=== PATIENT | female | born 1970 | race Caucasian/White ===

== ENCOUNTER 2017-05-01 19:30 | Inpatient (IN) ==
[2017-05-01] MEDS ORDERED: MetroNIDAZOLE 500 MG/100 ML 500 MG/100 ML BAG IVPB ONE (19:40)
[2017-05-01] MEDS ORDERED: Piperacillin/Tazobactam 3.375 GM in 0.9 % Sodium Chloride Mini Bag 100 ML IVPB ONE (19:40)
--- NOTE | 2017-05-01 19:41 | Emergency Department Note ---
Disposition Clinical Impression: Diverticulitis of intestine with abscess Disposition: Admitted As Inpatient Condition: Good General Adult HPI - General Chief complaint: ED Skin/Abscess/Foreign Body Stated complaint: ABSCESS Time Seen by Provider: 05/01/17 19:36 Source: patient, family Limitations: no limitations - History of Present Illness Pain Scale: 4 - Related Data Home Medications Medication Instructions Recorded Confirmed Ciprofloxacin HCl [Cipro] 500 mg PO BID 05/01/17 05/01/17 Sertraline [Zoloft] 50 mg PO DAILY 05/01/17 05/01/17 metroNIDAZOLE [Flagyl] 500 mg PO QID 05/01/17 05/01/17 Allergies Allergy/AdvReac Type Severity Reaction Status Date / Time No Known Allergies Allergy Verified 05/01/17 19:31 Past Medical History - Past Medical History Medical history: Reports: hyperlipidemia Psychiatric history: Reports: anxiety, depression [employer] history: Reports: bilateral tubal ligation - Social History Smoking Status: Current every day smoker Smokeless Tobacco Status: No Alcohol use: Reports: rarely Drug use: Reports: none Physical Exam - General Limitations: no limitations General appearance: alert, in no apparent distress Course Vital Signs Temperature 97.8 F 05/01/17 19:31 Pulse Rate 92 05/01/17 19:31 Respiratory Rate 16 05/01/17 19:31 Blood Pressure 139/84 05/01/17 19:31 O2 Sat by Pulse Oximetry 99 05/01/17 19:31 Temperature 98.1 F 05/02/17 00:15 Pulse Rate 83 05/02/17 00:15 Respiratory Rate 16 05/02/17 00:15 Blood Pressure 112/69 05/02/17 00:15 O2 Sat by Pulse Oximetry 95 05/02/17 00:15 Oxygen Delivery Oxygen Delivery Room Air Medical Decision Making - Lab Data Result diagrams: 05/01/17 19:46 05/01/17 19:46 Lab Results 05/01/17 05/01/17 05/01/17 Range/Units 19:46 19:46 19:46 WBC 11.1 (4.3-11.1) K/mcL RBC 4.56 (3.82-4.97) M/mcL Hgb 14.0 (11.5-15.4) g/dL Hct 41.9 (35.3-44.9) % MCV 91.9 (83.0-100.0) fL MCH 30.7 (28.0-33.3) pg MCHC 33.4 (31.6-35.5) g/dL RDW 11.9 (11.5-14.5) % Plt Count 369 (140-400) K/mcL MPV 10.1 (9.4-12.4) fL Immature Gran % 0.3 (0-4) % Seg Neutrophils % 53.1 % Lymphocytes % 38.5 % Monocytes % 6.2 % Eosinophils % 1.4 % Basophils % 0.5 % Neutrophils # 5.9 (1.6-8.9) K/mcL Lymphocytes # 4.3 (0.6-4.6) K/mcL Monocytes # 0.7 (0.0-1.3) K/mcL Eosinophils # 0.2 (0.0-0.6) K/mcL Basophils # 0.1 (0.0-0.2) K/mcL PT 12.6 H (9.4-12.1) Seconds INR 1.2 Sodium 134 L (136-145) mEq/L Potassium 4.0 (3.5-5.1) mEq/L Chloride 102 (98-107) mEq/L Carbon Dioxide 24 (23-29) mEq/L BUN 12 (6-20) mg/dL Creatinine 0.71 (0.60-1.20) mg/dL Est GFR ( Amer) > 60 (> 60) Est GFR (Non-Af Amer) > 60 (> 60) BUN/Creatinine Ratio 17 (6-26) Glucose 99 (70-105) mg/dL Calculated Osmolality 278 L (280-300) Calcium 9.8 (8.6-10.3) mg/dL Total Bilirubin 0.4 (0.3-1.0) mg/dL AST 13 (13-39) Units/L ALT 16 (7-52) Units/L Alkaline Phosphatase 78 (34-104) Units/L Serum Total Protein 7.5 (6.4-8.9) g/dL Albumin 4.2 (3.5-5.7) g/dL Globulin 3.3 (2.4-3.5) g/dL Albumin/Globulin Ratio 1.3 (1.1-2.2) Attestation Statement - Attestation Attestation: I examined this patient and my medical decision-making was reviewed with the Resident Physician. I agree with the documented findings, disposition and treatment plan as described except to the extent set forth below. [id number] time provided Patient had an outpatient CT showing a colonic wall abscess secondary to diverticulitis. I have reviewed the transcribed report dictated earlier today. She appears in no acute distress on exam. Patient seen in conjunction with the resident physician
[2017-05-01 20:19] LABS: Basophils # 0.1 K/mcL (0.0-0.2); Basophils % 0.5 %; Eosinophils # 0.2 K/mcL (0.0-0.6); Eosinophils % 1.4 %; Hematocrit 41.9 % (35.3-44.9); Immature Granulocytes % 0.3 % (0-4); Lymphocytes # 4.3 K/mcL (0.6-4.6); Lymphocytes % 38.5 %; Mean Corpuscular HGB Conc 33.4 g/dL (31.6-35.5); Mean Corpuscular Hemoglobin 30.7 pg (28.0-33.3); Mean Corpuscular Volume 91.9 fL (83.0-100.0); Mean Platelet Volume 10.1 fL (9.4-12.4); Monocytes # 0.7 K/mcL (0.0-1.3); Monocytes % 6.2 %; Neutrophils # 5.9 K/mcL (1.6-8.9); Platelet Count 369 K/mcL (140-400); Red Blood Count 4.56 M/mcL (3.82-4.97); Red Cell Distribution Width 11.9 % (11.5-14.5); Segmented Neutrophils % 53.1 %
[2017-05-01 20:21] LABS: INR 1.2; Prothrombin Time 12.6 Seconds (9.4-12.1)
[2017-05-01 20:25] LABS: Alanine Aminotransferase 16 Units/L (7-52); Albumin 4.2 g/dL (3.5-5.7); Albumin/Globulin Ratio 1.3 (1.1-2.2); Alkaline Phosphatase 78 Units/L (34-104); Aspartate Amino Transferase 13 Units/L (13-39); BUN/Creatinine Ratio 17 (6-26); Bilirubin,Total 0.4 mg/dL (0.3-1.0); Blood Urea Nitrogen 12 mg/dL (6-20); Calcium 9.8 mg/dL (8.6-10.3); Carbon Dioxide 24 mEq/L (23-29); Chloride 102 mEq/L (98-107); Globulin 3.3 g/dL (2.4-3.5); Glucose 99 mg/dL (70-105); Osmolality,Calculated 278 (280-300); Sodium 134 mEq/L (136-145); Total Protein 7.5 g/dL (6.4-8.9); eGFR For African Americans > 60 (> 60); eGFR For Non-African Americans > 60 (> 60)
--- NOTE | 2017-05-01 20:37 | Emergency Department Note ---
Disposition Clinical Impression: Diverticulitis of intestine with abscess Qualifiers: Diverticulitis site: large intestine Diverticulitis bleeding: without bleeding Qualified Code(s): K57.20 - Diverticulitis of large intestine with perforation and abscess without bleeding Disposition: Admitted As Inpatient Condition: Good Forms: ED Satisfaction Letter Time of Disposition: 20:39 General Adult HPI - General Chief complaint: ED Skin/Abscess/Foreign Body Stated complaint: ABSCESS Time Seen by Provider: 05/01/17 19:36 Source: patient, family Mode of arrival: ambulatory Limitations: no limitations Nursing Notes Reviewed: Yes Vital Signs Reviewed: Yes - History of Present Illness HPI Narrative: 47-year-old female with no significant past medical history presenting to the emergency department with chief complaint of abdominal pain. Patient states since Friday she has had some left lower and suprapubic abdominal pain. She denies any fevers, nausea or vomiting. Denies diarrhea. Patient states she had a hysterectomy but no other abdominal surgeries. Patient followed up with her primary care physician today who completed a CT of the abdomen and pelvis which showed diverticulitis and a 8 mm abscess in the sigmoid colon. Patient was sent to the emergency department for further evaluation and workup. Pain Scale: 4 - Related Data Allergies Allergy/AdvReac Type Severity Reaction Status Date / Time No Known Allergies Allergy Verified 05/01/17 19:31 All systems ED: reviewed and negative except as stated. Gastrointestinal: Reports: abdominal pain Past Medical History - Past Medical History Attestation: Yes The following information was validated with the patient. Medical history: Reports: hyperlipidemia Psychiatric history: Reports: anxiety, depression [employer] history: Reports: bilateral tubal ligation - Social History Smoking Status: Current every day smoker Smokeless Tobacco Status: No Alcohol use: Reports: rarely Drug use: Reports: none Physical Exam - General Limitations: no limitations General appearance: alert, in no apparent distress - Head Head exam: atraumatic, normocephalic, normal inspection - Eye Eye exam: Present: normal appearance. Absent: scleral icterus, conjunctival injection - ENT ENT exam: normal exam, mucous membranes moist - Neck Neck exam: Present: normal inspection, full ROM. Absent: tenderness, meningismus - Chest Chest inspection: Present: normal inspection, symmetric chest wall rise. Absent : tenderness, rash - Respiratory Respiratory exam: Present: normal lung sounds bilaterally. Absent: respiratory distress, wheezes - Cardiovascular Cardiovascular exam: Present: regular rate, normal rhythm, normal heart sounds - Abdominal Exam Abdominal exam: Present: soft, tenderness. Absent: distention, guarding, rebound, rigidity Abdominal tenderness: Present: LLQ, suprapubic, mild - Extremities Exam Extremities exam: Present: normal inspection, full ROM - Neurological Exam Neurological exam: Present: alert, oriented X3 - Psychiatric Psychiatric exam: Present: normal affect, normal mood - Skin Skin exam: Present: warm, intact Course Course Narrative: 47-year-old female presenting to the emergency department complaining of abdominal pain. CT completed today showed diverticulitis with abscess formation in the sigmoid colon. We will obtain basic lab work including CBC, CMP and provide the patient with Flagyl and Zosyn. Patient is alert and oriented 3 in the room and stable vital signs at this time. Disposition is likely admission pending results. Patient agrees with this plan. - Reevaluation(s) Reevaluation #1: All patient's lab work within normal limits. We will plan to admit the patient to surgical team. Dr. Cantrell accepts the patient at this time. Patient is alert and oriented 3. Vital signs at this time. She agrees with this plan. Vital Signs Temperature 97.8 F 05/01/17 19:31 Pulse Rate 92 05/01/17 19:31 Respiratory Rate 16 05/01/17 19:31 Blood Pressure 139/84 05/01/17 19:31 O2 Sat by Pulse Oximetry 99 05/01/17 19:31 Temperature 97.8 F 05/01/17 19:31 Pulse Rate 92 05/01/17 19:31 Respiratory Rate 16 05/01/17 19:31 Blood Pressure 139/84 05/01/17 19:31 O2 Sat by Pulse Oximetry 99 05/01/17 19:31 Oxygen Delivery Oxygen Delivery Room Air Medical Decision Making - Lab Data Result diagrams: 05/01/17 19:46 05/01/17 19:46 Lab Results 05/01/17 05/01/17 05/01/17 Range/Units 19:46 19:46 19:46 WBC 11.1 (4.3-11.1) K/mcL RBC 4.56 (3.82-4.97) M/mcL Hgb 14.0 (11.5-15.4) g/dL Hct 41.9 (35.3-44.9) % MCV 91.9 (83.0-100.0) fL MCH 30.7 (28.0-33.3) pg MCHC 33.4 (31.6-35.5) g/dL RDW 11.9 (11.5-14.5) % Plt Count 369 (140-400) K/mcL MPV 10.1 (9.4-12.4) fL Immature Gran % 0.3 (0-4) % Seg Neutrophils % 53.1 % Lymphocytes % 38.5 % Monocytes % 6.2 % Eosinophils % 1.4 % Basophils % 0.5 % Neutrophils # 5.9 (1.6-8.9) K/mcL Lymphocytes # 4.3 (0.6-4.6) K/mcL Monocytes # 0.7 (0.0-1.3) K/mcL Eosinophils # 0.2 (0.0-0.6) K/mcL Basophils # 0.1 (0.0-0.2) K/mcL PT 12.6 H (9.4-12.1) Seconds INR 1.2 Sodium 134 L (136-145) mEq/L Potassium 4.0 (3.5-5.1) mEq/L Chloride 102 (98-107) mEq/L Carbon Dioxide 24 (23-29) mEq/L BUN 12 (6-20) mg/dL Creatinine 0.71 (0.60-1.20) mg/dL Est GFR ( Amer) > 60 (> 60) Est GFR (Non-Af Amer) > 60 (> 60) BUN/Creatinine Ratio 17 (6-26) Glucose 99 (70-105) mg/dL Calculated Osmolality 278 L (280-300) Calcium 9.8 (8.6-10.3) mg/dL Total Bilirubin 0.4 (0.3-1.0) mg/dL AST 13 (13-39) Units/L ALT 16 (7-52) Units/L Alkaline Phosphatase 78 (34-104) Units/L Serum Total Protein 7.5 (6.4-8.9) g/dL Albumin 4.2 (3.5-5.7) g/dL Globulin 3.3 (2.4-3.5) g/dL Albumin/Globulin Ratio 1.3 (1.1-2.2)
--- NOTE | 2017-05-01 21:33 | General Surg History&Physical ---
Date of Encounter: 05/01/17 Time of Encounter: 21:31 Assessment and Plan (1) Diverticulitis of intestine with abscess Current Visit: Yes Status: Acute 47F with recurrent diverticulitis now with associated abscess; non septic; all imaging was reviewed and interpreted by me in combination with radiology; NPO IVF abx: zosyn activity as tolerated no acute surgery; The assessment and plan as outlined above was discussed with the patient and/or family members who expressed understanding and agreement. All questions were answered. Qualifiers: Diverticulitis site: large intestine Diverticulitis bleeding: without bleeding Qualified Code(s): K57.20 - Diverticulitis of large intestine with perforation and abscess without bleeding History of Present Illness Chief complaint: abdominal pain HPI: Ms. Stanford is a 47 year old female who is otherwise healthy who presents with 5 day history of worsening LLQ abdominal pain. No associated fevers, chills; she does report PO intolerance. She comes to the ED for further evaluation. Of note, about 4 years ago she had a similar episode requiring hospitalization. She was diagnosed with diverticulitis, but treated non operatively. She also reports similar, smaller episodes between now and 4 years ago that resolved within 24-48hours. Past Med Surg Social Fam HX - Past Medical History Medical history: hyperlipidemia Psychiatric history: anxiety, depression - Past Surgical History Surgical History: no surgical history, other - Social History Smoking Status: Current every day smoker Smokeless Tobacco Status: No Alcohol use: rarely Drug use: none - Family History Father Hx Family Cardiac Disorders: Yes (HTN) Mother Hx Family Cardiac Disorders: Yes (HTN) Medications and Allergies Ciprofloxacin HCl [Cipro] 500 mg PO BID 05/01/17 [History] Sertraline [Zoloft] 50 mg PO DAILY 05/01/17 [History] metroNIDAZOLE [Flagyl] 500 mg PO QID 05/01/17 [History] 3 Allergy/AdvReac Type Severity Reaction Status Date / Time No Known Allergies Allergy Verified 05/01/17 19:31 Review of Systems All systems PM: The remainder of the systems were reviewed and are negative General Surgery Exam Initial Vital Signs Temp Pulse Resp BP Pulse Ox 97.8 F 92 16 139/84 99 05/01/17 19:31 05/01/17 19:31 05/01/17 19:31 05/01/17 19:31 05/01/17 19:31 - General physical appearance well developed, well nourished, no distress - Eyes normal ocular movement - ENT normocephalic - Neck no lymphadectomy - Respiratory normal expansion, normal respiratory effort - Cardiovascular Cardiovascular exam: Present: RRR - Abdomen Abdomen general surgery: Present: soft, tender Abdominal Tenderness: Present: LLQ, suprapubic - Integumentary Integumentary general surgery: Present: warm and dry - Neurologic Present: CN 2-12 grossly intact - Musculoskeletal Present: normal posture - Psychiatric Psychiatric general surgery: Present: A&Ox3 Results - Labs 05/01/17 19:46 05/01/17 19:46 Abnormal lab results PT 12.6 Seconds (9.4-12.1) H 05/01/17 19:46 Sodium 134 mEq/L (136-145) L 05/01/17 19:46 Calculated Osmolality 278 (280-300) L 05/01/17 19:46 All other labs normal. - Imaging CT scan - abdomen: report reviewed, image reviewed CT scan - pelvis: report reviewed, image reviewed
[2017-05-01] MEDS ORDERED: *HR* Promethazine 25 MG/ML VIAL IVP PRN (21:36)
[2017-05-01] MEDS ORDERED: *HR* FentaNYL (PF) 100 MCG/2 ML VIAL IVP PRN (21:40)
[2017-05-01] MEDS: D5% in 0.45% NACL w KCl 20 MEQ/1,000 ML MLS IVC SCH (22:34)
[2017-05-02] MEDS: Piperacillin/Tazobactam 3.375 GM in 0.9 % Sodium Chloride Mini Bag 100 ML IVPB SCH ×3 (04:38→20:42)
[2017-05-02 05:54] LABS: Basophils # 0.1 K/mcL (0.0-0.2); Basophils % 0.6 %; Eosinophils # 0.2 K/mcL (0.0-0.6); Eosinophils % 2.5 %; Hematocrit 38.2 % (35.3-44.9); Hemoglobin 12.6 g/dL (11.5-15.4); Immature Granulocytes % 0.4 % (0-4); Lymphocytes # 3.2 K/mcL (0.6-4.6); Lymphocytes % 39.5 %; Mean Corpuscular Hemoglobin 30.7 pg (28.0-33.3); Mean Corpuscular Volume 92.9 fL (83.0-100.0); Mean Platelet Volume 10.1 fL (9.4-12.4); Monocytes # 0.6 K/mcL (0.0-1.3); Monocytes % 7.8 %; Neutrophils # 3.9 K/mcL (1.6-8.9); Platelet Count 337 K/mcL (140-400); Red Blood Count 4.11 M/mcL (3.82-4.97); Red Cell Distribution Width 11.9 % (11.5-14.5); Segmented Neutrophils % 49.2 %
[2017-05-02] MEDS: *HR* Enoxaparin 40 MG/0.4 ML SYRINGE SQ SCH (05:54)
[2017-05-02] MEDS: D5% in 0.45% NACL w KCl 20 MEQ/1,000 ML MLS IVC SCH (08:47)
--- NOTE | 2017-05-02 10:38 | General Surgery Progress Note ---
<Chris Solanoison H - Last Filed: 05/02/17 10:42> Date of Encounter: 05/02/17 Time of Encounter: 10:36 - Assessment and Plan (1) Diverticulitis of intestine with abscess Current Visit: Yes Status: Acute 47-year-old female with recurrent diverticulitis now with associated abscess. Patient's nonseptic and resting comfortably. -We will advance her to clear liquid diet. -IVF -Zosyn -Increase activity as tolerated. -No acute surgery. -If advancement of diet tomorrow is tolerated, okay for discharge. Qualifiers: Diverticulitis site: unspecified part of intestinal tract Diverticulitis bleeding: without bleeding Qualified Code(s): K57.80 - Diverticulitis of intestine, part unspecified, with perforation and abscess without bleeding Subjective Patient reports: no new complaints, feels better, pain is less, voiding w/o difficulty, flatus, afebrile (No nausea or vomitting. No hematochezia or melena. ) Objective Vital Signs - Last 8 Hours Temp Pulse Resp BP Pulse Ox 05/02/17 06:32 98.2 F 78 16 97/55 96 05/02/17 04:08 98.1 F 85 14 105/61 97 Intake and Output 05/01/17 05/02/17 05/02/17 23:59 07:59 15:59 Intake Total 1094 / 1094 Output Total 0 / 0 400 / 400 Balance 0 / 0 694 / 694 Intake: IV Fluids 1094 / 1094 KCl 20mEq IN D5%-0.45 NACL 20 994 / 994 meq In 1,000 ml @ 100 mls/hr IVC .Q10H DEVON Rx#:[id number] Zosyn 3.375 GM In 0.9 % Sodium 100 / 100 Chloride (Mini-Bag +) 100 ML @ 25 mls/hr IVPB Q8H DEVON Rx#: [id number] Output: Urine 0 / 0 400 / 400 Other: Meal NPO BREAKFAST # Voids 3 # Bowel Movements 1 Weight 61.416 kg Blood Glucose* 105 Patient Weight 05/02/17 23:59 Weight 61.416 kg - General physical appearance well developed, well nourished, no distress - Eyes normal ocular movement - ENT normal mucosa - Neck Neck exam: trachea midline - Respiratory normal expansion, normal respiratory effort, clear to auscultation - Cardiovascular Cardiovascular exam: Present: RRR, no murmurs/rubs/gallops - Abdomen Abdomen: Present: bowel sounds present, soft, non tender Hernia: none - Integumentary no rash - Neurologic CN 2-12 grossly intact, normal coordination - Musculoskeletal normal posture - Psychiatric oriented to time, oriented to person, oriented to place, speech is normal, memory intact - Labs 05/02/17 05:11 05/01/17 19:46 - VTE Documentation of Mechanical Device: Graduated compression elastic hosiery Consult Discharge Plan - Plan Referrals: Kody Cantrell MD [Non-Partnered Physician] - 05/07/17 2:35 pm Shabnam Mccormack MD [Primary Care Provider] - 06/12/17 9:00 am <Kody Cantrell - Last Filed: 05/03/17 11:04> Date of Encounter: 05/03/17 - Assessment and Plan (1) Diverticulitis of intestine with abscess Current Visit: Yes Status: Acute Qualifiers: Diverticulitis site: unspecified part of intestinal tract Diverticulitis bleeding: without bleeding Qualified Code(s): K57.80 - Diverticulitis of intestine, part unspecified, with perforation and abscess without bleeding Objective Vital Signs - Last 8 Hours Temp Pulse Resp BP Pulse Ox 05/03/17 10:57 97.8 F 63 14 114/59 99 05/03/17 06:52 97.9 F 67 16 104/69 97 05/03/17 04:13 98.0 F 73 14 102/53 97 Intake and Output 05/02/17 05/03/17 05/03/17 23:59 07:59 15:59 Intake Total 1540 / 1540 580 / 580 360 / 360 Output Total 850 / 850 850 / 850 Balance 690 / 690 -270 / -270 360 / 360 Intake: IV Fluids 1300 / 1300 100 / 100 KCl 20mEq IN D5%-0.45 NACL 20 1000 / 1000 meq In 1,000 ml @ 100 mls/hr IVC .Q10H DEVON Rx#:[id number] Zosyn 3.375 GM In 0.9 % Sodium 100 / 100 100 / 100 Chloride (Mini-Bag +) 100 ML @ 25 mls/hr IVPB Q8H DEVON Rx#: [id number] Oral 240 / 240 480 / 480 360 / 360 Output: Urine 850 / 850 850 / 850 Other: Meal Dinner Breakfast Percent of Meal Consumed 50% Weight 61.235 kg Patient Weight 05/03/17 23:59 Weight 61.235 kg - Labs 05/02/17 05:11 05/01/17 19:46 - Attending Attestation Patient seen and examined. I have reviewed all labs, imaging, and notes, including this one. I agree with the above assessment and plan and wish to add the following... Afebrile; significant reduction in pain; minimally tender on my exam; start clear liquids; okay to advance diet as tolerated over the weekend and subsequently discharge with plans for follow up in my clinic next week;
[2017-05-03] MEDS: Piperacillin/Tazobactam 3.375 GM in 0.9 % Sodium Chloride Mini Bag 100 ML IVPB SCH (04:52)
[2017-05-03] MEDS: D5% in 0.45% NACL w KCl 20 MEQ/1,000 ML MLS IVC SCH (04:53)
[2017-05-03] MEDS: *HR* Enoxaparin 40 MG/0.4 ML SYRINGE SQ SCH (05:01)
[2017-05-03 10:59] VITALS: BP 114/59
--- NOTE | 2017-05-03 15:38 | Discharge Summary ---
<XiomaraNola Windy - Last Filed: 05/03/17 15:36> Date of Encounter: 05/03/17 Time of Encounter: 15:38 - Discharge Diagnosis (1) Diverticulitis of intestine with abscess Priority: Primary Status: Acute Qualifiers: Diverticulitis site: unspecified part of intestinal tract Diverticulitis bleeding: without bleeding Qualified Code(s): K57.80 - Diverticulitis of intestine, part unspecified, with perforation and abscess without bleeding General Surgery Exam Initial Vital Signs Temp Pulse Resp BP Pulse Ox 97.8 F 92 16 139/84 99 05/01/17 19:31 05/01/17 19:31 05/01/17 19:31 05/01/17 19:31 05/01/17 19:31 - General physical appearance well developed, well nourished, no distress, no pain - Neck trachea midline - Respiratory normal expansion, normal respiratory effort, clear to auscultation - Cardiovascular Cardiovascular exam: Present: RRR, no murmurs/rubs/gallops - Abdomen Abdomen general surgery: Present: bowel sounds present, soft, non tender Hernia: Present: none - Integumentary Integumentary general surgery: Present: warm and dry - Neurologic Present: CN 2-12 grossly intact, normal coordination - Musculoskeletal Present: normal gait, normal posture - Psychiatric Psychiatric general surgery: Present: A&Ox3, speech is normal, memory intact - Hospital Course Hospital course: Ms. Stanford is an otherwise healthy 47 year old female who presented to [facility] on 05/01/2017 with a 5 day history of worsening left lower quadrant abdominal pain. Patient was admitted to the hospital after CT imaging demonstrated diverticulitis with an intestinal wall abscess. Patient was made nothing by mouth, given IV fluids, and started on IV Zosyn. Patient's abdominal pain improved. She tolerated a diet with no return of nausea, vomiting, or abdominal pain. This morning, patient was resting comfortably with no abdominal pain. She handled a soft diet for lunch with no problems. She understood the plan for discharge from the hospital with 10 days of antibiotics including ciprofloxacin and metronidazole. She has follow-up scheduled with Dr. whitman in his office this week. All questions and concerns were addressed. - Time Spent with Patient Total time spent providing and/or coordinating discharge services: - Discharge Medications Prescriptions: Ciprofloxacin HCl [Cipro] 500 mg PO BID 10 Days #20 tablet metroNIDAZOLE [Flagyl] 500 mg PO TID 10 Days #30 tablet Home Medications: Sertraline [Zoloft] 50 mg PO DAILY 05/01/17 [History] Ciprofloxacin HCl [Cipro] 500 mg PO BID 10 Days #20 tablet 05/03/17 [Rx] metroNIDAZOLE [Flagyl] 500 mg PO TID 10 Days #30 tablet 05/03/17 [Rx] Allergies/Adverse Reactions: 3 Allergy/AdvReac Type Severity Reaction Status Date / Time No Known Allergies Allergy Verified 05/01/17 19:31 Date of admission: 05/01/17 21:36 Primary care physician: Shabnam Mccormack, Discharging clinician: Angelica Luna Anticipated date of discharge: 05/03/17 - Patient Status Disposition: Home, Self-Care Condition: Good Functional capacity at discharge: independent ambulation Overall status at discharge: patient is progressing back to baseline - Discharge Instructions Instructions: Ciprofloxacin (By mouth), Metronidazole (By mouth), Diverticulitis (GEN), Low Fiber Diet (GEN) Follow Up With: Kody Whitman MD [Non-Partnered Physician] - 05/07/17 2:35 pm Shabnam Mccormack MD [Primary Care Provider] - 06/12/17 9:00 am - Diet and Activity Activity: increase activity as tolerated Diet: advance to your usual diet <Angelica Luna - Last Filed: 05/03/17 16:51> Date of Encounter: 05/03/17 General Surgery Exam Initial Vital Signs Temp Pulse Resp BP Pulse Ox 97.8 F 92 16 139/84 99 05/01/17 19:31 05/01/17 19:31 05/01/17 19:31 05/01/17 19:31 05/01/17 19:31 - General physical appearance well developed, well nourished, no distress - Eyes PERRL, normal ocular movement - ENT normal mucosa, normocephalic - Respiratory normal expansion, clear to auscultation - Cardiovascular Cardiovascular exam: Present: RRR, no murmurs/rubs/gallops - Abdomen Abdomen general surgery: Present: bowel sounds present, soft, non tender. Absent: distended - Integumentary Integumentary general surgery: Present: warm and dry - Neurologic Present: CN 2-12 grossly intact - Musculoskeletal Present: normal posture - Psychiatric Psychiatric general surgery: Present: A&Ox3 - Hospital Course Hospital course: Ms. Stanford is a 47 year old female - Time Spent with Patient Total time spent providing and/or coordinating discharge services: Date of admission: 05/01/17 21:36 Primary care physician: Shabnam Mccormack, - Attending Attestation I examined this patient and my medical decision-making was reviewed with the Resident Physician. I agree with the documented findings, disposition and treatment plan as described except to the extent set forth below.
== END 2017-05-03 20:00 | disposition home or self-care (01) | DRG 392 ==
LOC: 3ANU 19:30 → EMEROO 19:30 → 3ANU 21:00
PROVIDERS: ADMIT Surgery; ATTEND Surgery